=== PATIENT | male | born 1950 | race Caucasian/White ===

== ENCOUNTER 2016-06-06 11:00 | Emergency (ER) | payer OTHER, MEDICAID ==
[~2016-06-06] VITALS: Ht 188 cm; Wt 90.9 kg
[2016-06-06 11:05] VITALS: BP 144/94
== END 2016-06-06 12:40 | disposition home or self-care (01) ==
LOC: ED 11:00
DX: S61.211A Laceration without foreign body of left index finger without damage to nail, initial encounter (principal); W26.0XXA Contact with knife, initial encounter; Y93.G3 Activity, cooking and baking; Y99.8 Other external cause status; Y92.000 Kitchen of unspecified non-institutional (private) residence as the place of occurrence of the external cause
CPT/HCPCS: 90715

== ENCOUNTER 2018-01-23 18:12 | Emergency (ER) | payer OTHER, MEDICAID ==
[~2018-01-23] VITALS: Ht 188 cm; Wt 92.5 kg
[2018-01-23 18:19] VITALS: Ht 188 cm; Wt 92.5 kg
[2018-01-23 19:05] LABS: PLATELET COUNT 220 x10^3mcL (130-400); RED CELL DISTRIBUTION WIDTH 14.2 % (11.5-14.5)
[2018-01-23 19:08] LABS: BASOPHIL % 3.2 % (0-2)
[2018-01-23 19:19] LABS: ALBUMIN 2.5 g/dL (3.4-5.0); ALKALINE PHOSPHATASE 62 U/L (46-116); ALT/SGPT 51 U/L (16-63); AST/SGOT 30 U/L (15-37); BILIRUBIN TOTAL 0.9 mg/dL (0.20-1.00); CALCIUM 8.9 mg/dL (8.5-10.1); CARBON DIOXIDE 29.5 mmol/L (21-32); CHLORIDE SERUM 99 mmol/L (98-107); CHOLESTEROL 122 mg/dL (<200); CREATININE SERUM 0.9 mg/dL (0.7-1.3); GFR1 > 60 mL/min; GLUCOSE SERUM 112 mg/dL (74-106); HDL CHOLESTEROL 20 mg/dL (40-60); LIPASE 76 IU/L (73-393); SODIUM SERUM 135 mmol/L (136-145); TOTAL PROTEIN, SERUM 7.4 g/dL (6.4-8.2)
[2018-01-23 20:46] LABS: UA SPECIFIC GRAVITY 1.025 (1.005-1.035); microscopic required? YES; urine erythrocyte TRACE (NEGATIVE)
[2018-01-24 06:22] VITALS: BP 149/52
== END 2018-01-24 05:50 | disposition short-term general hospital (02) ==
LOC: ED 18:12
PROVIDERS: Emergency Medicine
DX: M54.5 Low back pain (principal); E87.6 Hypokalemia; I71.4 Abdominal aortic aneurysm, without rupture; I48.91 Unspecified atrial fibrillation; K57.30 Diverticulosis of large intestine without perforation or abscess without bleeding
CPT/HCPCS: 87804; J2270; J7030; Q9967